=== PATIENT | male | born 1985 | race Caucasian/White ===

== ENCOUNTER 2018-01-06 09:57 | Emergency (ER) | payer OTHER ==
[2018-01-06 10:24] VITALS: BP 129/58
--- NOTE | 2018-01-06 10:44 | UC ---
Skin Complaint HPI - HPI Summary HPI Summary: Right posterior leg rash with clear drainage. He is in the and was in [place] this past week. The rash is not painful but irritated and drainage is clear. No dm or other medical problems. - History of Current Complaint Chief Complaint: UCSkin Time Seen by Provider: 01/06/18 10:31 Stated Complaint: SKIN COMPLAINT Hx Obtained From: Patient Onset/Duration: Gradual Onset, Lasting Days Skin Exposure Onset/Duration: Days Ago Timing: Constant Onset Severity: Moderate Current Severity: Moderate Pain Intensity: 2 Location: Discrete Aggravating Factor(s): Nothing Alleviating Factor(s): Nothing Associated Signs & Symptoms: Positive: Rash, Drainage. Negative: Nausea, Vomiting, Numbness, Shivering, Fever, Chills, Cough, Wheezing, Abdominal Pain, Lightheadedness, Syncope, Bruising, Tenderness, Red Streaks, Joint Swelling - Allergy/Home Medications Allergies/Adverse Reactions: Allergies Allergy/AdvReac Type Severity Reaction Status Date / Time No Known Allergies Allergy Verified 01/06/18 10:27 Review of Systems Skin: Rash All Other Systems Reviewed And Are Negative: Yes PMH/Surg Hx/FS Hx/Imm Hx Previously Healthy: Yes - Surgical History Surgical History: None - Family History Known Family History: Positive: Other - no related skin disease. - Social History Occupation: Employed Full-time Alcohol Use: Occasionally Substance Use Type: None Smoking Status (MU): Never Smoked Tobacco - Immunization History Most Recent Tetanus Shot: within 5 yrs Physical Exam Triage Information Reviewed: Yes Appearance: Well-Appearing, No Pain Distress, Well-Nourished Vital Signs: Initial Vital Signs Temp 98.4 F 01/06/18 10:14 Pulse 101 01/06/18 10:14 Resp 18 01/06/18 10:14 BP 129/58 01/06/18 10:14 Pulse Ox 99 01/06/18 10:14 Vital Signs Reviewed: Yes Eyes: Positive: Conjunctiva Clear ENT: Positive: Normal ENT inspection Neck: Positive: Supple, Nontender, No Lymphadenopathy. Negative: Nuchal Rigidity Respiratory: Negative: Accessory muscle use Cardiovascular: Positive: Brisk Capillary Refill Abdomen Description: Negative: Distended Musculoskeletal: Positive: Strength Intact, ROM Intact, No Edema Neurological: Positive: Alert, Muscle Tone Normal. Negative: Fatigued Psychological: Positive: Age Appropriate Behavior Skin Exam: Other - Right posterior patch of rash the size of a grapefruit that is discrete. There is no induration. There are clear fluid filled vesicles on the periphery and the central area has superficial sloughed skin with clear slight amaya colored drainage. No streaking. Not red. Only salmon colored. Course/Dx - Course Course Of Treatment: This is c/w contact dermatitis or insect bite. No signs of infection but these signs were reviewed in detail and if they present, he knows he should return here. He has no signs of sheng mtn spotted fever as there is no fever, joint pain, diffuse rash or hx of tick bite. - Diagnoses Provider Diagnoses: rash Discharge - Sign-Out/Discharge Documenting (check all that apply): Discharge/Admit/Transfer - Discharge Plan Condition: Good Disposition: HOME Prescriptions: Triamcinolone 0.1% Oint (NF) [Triamcinolone Acetonide] 0.1 % TOPICAL BID #30 oin Patient Education Materials: Acute Rash (ED) Referrals: No Primary Care Phys,NOPCP [Primary Care Provider] - Additional Instructions: REturn for fever, joint pain, worsening rash, pain, purulent discharge. - Billing Disposition and Condition Condition: GOOD Disposition: HOME
== END 2018-01-06 10:45 | disposition home or self-care (01) ==
LOC: UCCORT 09:57
DX: R21 Rash and other nonspecific skin eruption (principal)
CPT/HCPCS: 99202; G0463